=== PATIENT | male | born 1995 | race Caucasian/White ===

== ENCOUNTER 2017-06-07 11:38 | Emergency (ER) | payer OTHER ==
[2017-06-07] MEDS ORDERED: Ibuprofen TAB* 600 MG PO ONE (12:52)
[2017-06-07 12:56] VITALS: BP 120/64
--- NOTE | 2017-06-07 13:02 | UC ---
HPI Febrile Illness - HPI Summary HPI Summary: Patient is returning to college, he has developed sore throat, fever, body aches , chills, cough and WARD. - History of Current Complaint Chief Complaint: UCRespiratory Time Seen by Provider: 06/07/17 12:44 Hx Obtained From: Patient Onset/Duration: Started Days Ago - 2 Timing: Constant Temperature: 101 F Initial Severity: Mild Current Severity: Severe Alleviating Factors: OTC Medicine Associated Signs and Symptoms: Arthralgia, Chills, Dizziness, Headache, Myalgia , Night Sweats, Sore Throat - Allergy/Home Medications Allergies/Adverse Reactions: Allergies Allergy/AdvReac Type Severity Reaction Status Date / Time No Known Allergies Allergy Verified 06/07/17 12:56 PMH/Surg Hx/FS Hx/Imm Hx Previously Healthy: Yes - Surgical History Surgical History: None - Family History Known Family History: Positive: Cardiac Disease, Hypertension - Social History Alcohol Use: Rare Substance Use Type: None Smoking Status (MU): Never Smoked Tobacco Review of Systems Constitutional: Fever, Chills, Fatigue Skin: Negative Eyes: Negative ENT: Sore Throat, Ear Ache Respiratory: Cough Cardiovascular: Negative Gastrointestinal: Negative Genitourinary: Negative Motor: Decreased ROM Neurovascular: Negative Musculoskeletal: Arthralgia, Myalgia Neurological: Headache Psychological: Negative Is Patient Immunocompromised?: No All Other Systems Reviewed And Are Negative: Yes Physical Exam Triage Information Reviewed: Yes Appearance: Well-Nourished, Ill-Appearing, Pain Distress Vital Signs: Initial Vital Signs Temp 99.4 F 06/07/17 12:52 Pulse 74 06/07/17 12:52 Resp 16 06/07/17 12:52 BP 120/64 06/07/17 12:52 Pulse Ox 98 06/07/17 12:52 Vital Signs Reviewed: Yes Eye Exam: Normal ENT: Positive: Pharyngeal erythema, Nasal congestion, Nasal drainage, TM bulging , Tonsillar swelling, Tonsillar exudate Dental Exam: Normal Neck exam: Normal Neck: Positive: Supple, Nontender, Enlarged Nodes @ - bilateral cervical Respiratory Exam: Normal Respiratory: Positive: Chest non-tender, Lungs clear, Normal breath sounds Cardiovascular Exam: Normal Cardiovascular: Positive: RRR, No Murmur, Pulses Normal Abdominal Exam: Normal Abdomen Description: Positive: Nontender, No Organomegaly, Soft Bowel Sounds: Positive: Present Musculoskeletal Exam: Normal Musculoskeletal: Positive: Strength Intact, ROM Intact, No Edema Neurological Exam: Normal Neurological: Positive: Alert, Muscle Tone Normal Psychological Exam: Normal Skin Exam: Normal Course/Dx - Course Course Of Treatment: hx obtained, examperformed ,meds reviewed, treated for - Febrile Illness Differential Diagnoses: Bacteremia, Meningitis, Other: - influenza, strep throat - Diagnoses Clinic Provider Diagnoses: pharyngitis. fever. chills Discharge - Discharge Plan Condition: Stable Disposition: HOME Prescriptions: Amoxicillin PO (*) [Amoxicillin 875 MG (*)] 875 mg PO BID #20 tab Patient Education Materials: Pharyngitis (ED), Fever in Adults (ED) Forms: *Physical Education Release Referrals: No Primary Care Phys,NOPCP [Primary Care Provider] - Additional Instructions: 1. increase rest 2. Get plenty of fluids 3. continue with ibuprofen and tylenol 4. Take the medication as prescribed.
== END 2017-06-07 13:29 | disposition home or self-care (01) ==
LOC: UCCORT 11:38
DX: J02.9 Acute pharyngitis, unspecified (principal); R50.9 Fever, unspecified
CPT/HCPCS: 87502; 87651; 99212; A9270-GY; G0463

== ENCOUNTER 2017-09-21 18:39 | Emergency (ER) | payer OTHER ==
[2017-09-21 19:10] VITALS: BP 127/62
--- NOTE | 2017-09-21 19:24 | ED ---
Throat Pain/Nasal Congestion - HPI Summary HPI Summary: 21 yr old male with the complaint of headache, cough, sore throat, congestion for almost two weeks. No SOB. He states he plays on [employer]. No other complaints. No CP. - History of Current Complaint Chief Complaint: UCGeneralIllness Time Seen by Provider: 09/21/17 19:10 - Allergies/Home Medications Allergies/Adverse Reactions: Allergies Allergy/AdvReac Type Severity Reaction Status Date / Time No Known Allergies Allergy Verified 06/07/17 12:56 Home Medications: Home Medications Dm/Acetaminophen/Doxylamine [Night Cold-Flu Relief Liq Gel] 1 each PO DAILY 12/02 [History Confirmed 09/21/17] Ibuprofen [Advil] 400 mg PO DAILY 09/21/17 [History Confirmed 09/21/17] PMH/Surg Hx/FS Hx/Imm Hx Infectious Disease History: No Infectious Disease History: Denies: Traveled Outside the [place] in Last 30 Days - Family History Known Family History: Positive: Cardiac Disease, Hypertension - Social History Occupation: Student Lives: Dormitory/Roommates Alcohol Use: Rare Substance Use Type: Reports: None Smoking Status (MU): Never Smoked Tobacco Review of Systems Constitutional: Negative Positive: Sore Throat, Nasal Discharge Positive: Cough All Other Systems Reviewed And Are Negative: Yes Physical Exam Triage Information Reviewed: Yes Vital Signs On Initial Exam: Initial Vitals Temp Pulse Resp BP Pulse Ox 98.5 F 91 20 127/62 98 09/21/17 19:05 09/21/17 19:05 09/21/17 19:05 09/21/17 19:05 09/21/17 19:05 Vital Signs Reviewed: Yes Appearance: Positive: Well-Appearing, No Pain Distress Skin: Positive: Warm Head/Face: Positive: Normal Head/Face Inspection Eyes: Positive: EOMI ENT: Positive: Pharyngeal erythema, TM dull - right, TM red - right, Uvula midline. Negative: Muffled voice, Hoarse voice Neck: Positive: Supple, Nontender Respiratory/Lung Sounds: Positive: Clear to Auscultation, Breath Sounds Present Cardiovascular: Positive: RRR. Negative: Murmur Abdomen Description: Positive: Nontender Musculoskeletal: Positive: Strength/ROM Intact Neurological: Positive: Sensory/Motor Intact, Alert, Oriented to Person Place, Time, CN Intact II-III, Normal Gait, Speech Normal Psychiatric: Positive: Normal - [place] Coma Scale Best Eye Response: 4 - Spontaneous Best Motor Response: 6 - Obeys Commands Best Verbal Response: 5 - Oriented Coma Scale Total: 15 Diagnostics - Vital Signs Vital Signs Temp Pulse Resp BP Pulse Ox 09/21/17 19:05 98.5 F 91 20 127/62 98 - Laboratory Lab Statement: Any lab studies that have been ordered have been reviewed, and results considered in the medical decision making process. EENT Course/Dx - Course Course Of Treatment: 21 yr old male with Otitis media and URI. Rx zithromax. - Diagnoses Provider Diagnoses: Otitis media, URI (upper respiratory infection) Discharge - Sign-Out/Discharge Documenting (check all that apply): Discharge/Admit/Transfer - Discharge Plan Condition: Good Disposition: HOME Prescriptions: Azithromycin TAB* [Zithromax TAB (Z-HARRISON) 250 mg #6 tabs] 2 tab PO .TODAY, THEN 1 DAILY #1 harrison Patient Education Materials: Ear Infection (ED) Referrals: No Primary Care Phys,NOPCP [Primary Care Provider] - [facility] [Outside] - Billing Disposition and Condition Condition: GOOD Disposition: HOME
== END 2017-09-21 19:40 | disposition home or self-care (01) ==
LOC: UCCORT 18:39
DX: H66.90 Otitis media, unspecified, unspecified ear (principal); J06.9 Acute upper respiratory infection, unspecified
CPT/HCPCS: 99212; G0463

== ENCOUNTER 2018-02-09 12:11 | Emergency (ER) | payer OTHER ==
[2018-02-09 12:45] VITALS: BP 116/54
--- NOTE | 2018-02-09 13:08 | UC ---
Respiratory Complaint HPI - HPI Summary HPI Summary: 22-year-old male comes to clinic today with a cough for 2 weeks. It's worse at night. It slightly loose but he has a hard time getting things out. No fever. No history of asthma. No history of environmental allergens. Minimal runny nose. He's tried some [id number] medications without relief. He is on [employer]. - History of Current Complaint Chief Complaint: UCRespiratory Stated Complaint: COUGH SORE THROAT Time Seen by Provider: 02/09/18 12:56 Pain Intensity: 0 - Allergies/Home Medications Allergies/Adverse Reactions: Allergies Allergy/AdvReac Type Severity Reaction Status Date / Time No Known Allergies Allergy Verified 02/09/18 12:42 PMH/Surg Hx/FS Hx/Imm Hx Other Respiratory History: NO ASTHMA - Surgical History Surgical History: None - Family History Known Family History: Positive: Cardiac Disease, Hypertension - Social History Occupation: Student Alcohol Use: Rare Substance Use Type: None Smoking Status (MU): Never Smoked Tobacco Review of Systems Constitutional: Negative Skin: Negative Eyes: Negative ENT: Nasal Discharge Respiratory: Cough Cardiovascular: Negative Gastrointestinal: Negative Neurovascular: Negative Musculoskeletal: Negative Neurological: Negative Psychological: Negative Is Patient Immunocompromised?: No All Other Systems Reviewed And Are Negative: Yes Physical Exam Triage Information Reviewed: Yes Appearance: Well-Appearing, No Pain Distress, Well-Nourished Vital Signs: Initial Vital Signs Temp 98 F 02/09/18 12:41 Pulse 66 02/09/18 12:41 Resp 14 02/09/18 12:41 BP 116/54 02/09/18 12:41 Pulse Ox 100 02/09/18 12:41 Vital Signs Reviewed: Yes Eye Exam: Normal ENT: Positive: Pharyngeal erythema, Nasal drainage, TMs normal Neck exam: Normal Neck: Positive: Supple Respiratory: Positive: Lungs clear, Normal breath sounds, No respiratory distress Cardiovascular: Positive: RRR Musculoskeletal Exam: Normal Musculoskeletal: Positive: Strength Intact, ROM Intact, No Edema Neurological Exam: Normal Neurological: Positive: Alert Psychological Exam: Normal Skin Exam: Normal UC Diagnostic Evaluation - Laboratory O2 Sat by Pulse Oximetry: 100 Respiratory Course/Dx - Course Course Of Treatment: We discussed the possible causes of the chronic cough. We' ll treat for bronchitis with bronchospasm with azithromycin and albuterol. We discussed possible environmental allergies and I recommended starting an over- the-counter antihistamine. Also recommended follow-up with the [facility] or returning here if he does not improve. - Differential Dx/Diagnosis Provider Diagnoses: BRONCHITIS. COUGH Discharge - Sign-Out/Discharge Documenting (check all that apply): Patient Departure All imaging exams completed and their final reports reviewed: No Studies - Discharge Plan Condition: Stable Disposition: HOME Prescriptions: Albuterol HFA INHALER* [Ventolin HFA Inhaler*] 2 puff INH Q4H PRN #1 mdi PRN Reason: Cough Azithromyxin HARRISON (NF) [Z-Harrison (Zithromax) 250 mg tabs #6] 2 tab PO .TODAY, THEN 1 DAILY #6 tab Patient Education Materials: Acute Bronchitis (ED), Chronic Cough (ED) Referrals: [facility] [Outside] [facility] [Outside] Additional Instructions: FOLLOW UP WITH YOUR DOCTOR IF NOT COMPLETELY IMPROVED. TRY AN OVER THE COUNTER ANTIHISTAMINE SUCH XYZAL IF HELPFUL. GET RECHECKED FOR ANY WORSENING OF YOUR CONDITION OR QUESTIONS OR CONCERNS. - Billing Disposition and Condition Condition: STABLE Disposition: Home - Attestation Statements Document Initiated by Scribe: No
== END 2018-02-09 13:17 | disposition home or self-care (01) ==
LOC: UCCORT 12:11
DX: J40 Bronchitis, not specified as acute or chronic (principal)
CPT/HCPCS: 99212; G0463